=== PATIENT | male | born 1980 ===

== ENCOUNTER 2018-02-22 11:40 | Emergency (ER) | payer OTHER, SELFPAY ==
[2018-02-22 11:54] VITALS: BP 134/100; PULSE 75; RESP 15; TEMP 36.9; O2SAT 97; BMI 21.7
--- NOTE | 2018-02-22 12:02 | DI.RAD.S_ITS ---
PROCEDURE: XR FINGER LT MIN 2V INDICATIONS: left pointer finger lac TECHNIQUE: AP hand, 2 views of the second finger(s) acquired. COMPARISON: None. FINDINGS: Bones: No fractures or dislocations. No suspicious bony lesions. Soft tissues: No suspicious soft tissue calcifications. No opaque foreign body. IMPRESSION: No fracture or dislocation. No opaque foreign body. Dictated by: Francy Wills M.D. on 02/22/2018 at 12:38 Approved by: Francy Wills M.D. on 02/22/2018 at 12:45
--- NOTE | 2018-02-22 12:06 | ED.WOUNDLAC ---
HPI - Wound/Laceration <ALLEY Hamilton - Last Filed: 02/22/18 22:12> General Chief Complaint: Wound/Laceration Stated Complaint: LACERATION TO INDEX FINGER LEFT HAND Time Seen by Provider: 02/22/18 12:06 Source: patient Mode of arrival: ambulatory Limitations: no limitations History of Present Illness HPI narrative: 38-year-old male here for complaint of laceration to his left index finger. 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 This happened just prior to arrival. He denies any other injuries. Bleeding is controlled with pressure. He reports that his last tetanus shot was last year. No other concerns or complaints Related Data Previous Rx's Medication Instructions Recorded hydrocodone-acetaminophen 0 tab PO Q6HP PRN #15 tab 08/18/16 ibuprofen 600 mg PO Q6HP PRN #20 tab 08/18/16 methocarbamol 500 mg PO QIDP PRN #14 tab 08/18/16 Allergies Allergy/AdvReac Type Severity Reaction Status Date / Time No Known Drug Allergies Allergy Verified 02/22/18 11:54 Review of Systems <ALLEY Hamilton - Last Filed: 02/22/18 22:12> Constitutional Denies chills, Denies fever(s), Denies lethargy and Denies weakness Eyes Denies change in vision, Denies eye discharge, Denies irritation and Denies loss of vision ENT Ears, Nose, Mouth, and Throat: Denies change in voice, Denies neck pain and Denies sore throat Cardiovascular Denies chest pain, Denies irregular heart rhythm, Denies lightheadedness, Denies palpitations, Denies dyspnea, Denies dyspnea on exertion and Denies orthopnea Respiratory Denies cough, Denies dyspnea, Denies dyspnea on exertion and Denies wheezing Genitourinary Denies hematuria, Denies flank pain, Denies urinary incontinence and Denies urinary urgency Musculoskeletal Denies neck pain Comments: Laceration left index finger Integumentary/Breasts Denies pruritus, Denies erythema, Denies rash and Denies wounds Neurologic Denies loss of vision and Denies weakness Endocrine Denies palpitations Allergic/Immunologic Denies wheezing Exam <ALLEY Hamilton - Last Filed: 02/22/18 22:12> Initial Vital Signs Initial Vital Signs: Vital Signs Temperature 98.4 F 02/22/18 11:54 Pulse Rate 75 02/22/18 11:54 Respiratory Rate 15 02/22/18 11:54 Blood Pressure 134/100 H 02/22/18 11:54 Pulse Oximetry 97 02/22/18 11:54 Const General: cooperative and well developed Nutritional Appearance: well nourished Orientation: alert, awake, oriented x3 and not confused HENTN Mouth: oral mucosae normal and moist mucous membranes Eyes Conjunctivae: conjunctivae normal Sclera: sclerae normal Pupils: PERRL EOM: EOM intact bilaterally Resp Effort & Inspection: normal respiratory effort, able to speak in complete sentences, no respiratory distress and no use of accessory muscles Auscultation: clear to auscultation bilaterally, no rales, no rhonchi and no wheezes Cardio Rate: regular rate Rhythm: regular rhythm Heart Sounds: no click, no gallops, no murmurs and no rubs Pulses: normal peripheral pulses Neuro General: alert, oriented x3, gait normal and no focal motor deficits Speech: speech normal Extrem Other: To have cm laceration to the distal left index finger radial aspect. Distal sensation is intact. Full range of motion. Distal cap refill less than 2 sec. <Moody Mayen DO - Last Filed: 02/23/18 07:15> Initial Vital Signs Initial Vital Signs: Vital Signs Temperature 98.4 F 02/22/18 11:54 Pulse Rate 75 02/22/18 11:54 Respiratory Rate 15 02/22/18 11:54 Blood Pressure 134/100 H 02/22/18 11:54 Pulse Oximetry 97 02/22/18 11:54 Procedures <ALLEY Hamilton - Last Filed: 02/22/18 22:12> Laceration Repair Laceration 1: Site: other (Left index finger) Side (If applicable): left Size (cm): 2.5 Description: linear Depth: simple, single layer Local Anesthetic: lidocaine 1% Amount of anesthesia used (mL): 2 Pre-repair: wound explored and irrigated extensively Skin layer closed with: nylon Size (cm): 5-0 Number of sutures: 5 Technique: simple, interrupted Course <ALLEY Hamilton - Last Filed: 02/22/18 22:12> Orders Ordered: ED Orders 02/22/18 12:02 XR finger LT min 2V Stat Vital Signs - 8 hr 02/22/18 11:54 Temperature 98.4 F Pulse Rate 75 Respiratory Rate 15 Blood Pressure 134/100 H Pulse Oximetry 97 <Moody Mayen DO - Last Filed: 02/23/18 07:15> Orders Ordered: ED Orders 02/22/18 12:02 XR finger LT min 2V Stat Vital Signs - 8 hr 02/22/18 11:54 Temperature 98.4 F Pulse Rate 75 Respiratory Rate 15 Blood Pressure 134/100 H Pulse Oximetry 97 MDM - Wound/Laceration <ALLEY Hamilton - Last Filed: 02/22/18 22:12> Imaging Data Left index finger: Radiologist's impression: [address] [address] XRay Report Signed Patient: Shiv Grant MR#: [id number] : 1980 Acct:[id number] Age/Sex: 38 / M Date of Service: 02/22/18 Loc: ED Accession Number: [id number] Procedure: XR finger LT min 2V Ordering Provider: Moody Mayen D.O. PROCEDURE: XR FINGER LT MIN 2V INDICATIONS: left pointer finger lac TECHNIQUE: AP hand, 2 views of the second finger(s) acquired. COMPARISON: None. FINDINGS: Bones: No fractures or dislocations. No suspicious bony lesions. Soft tissues: No suspicious soft tissue calcifications. No opaque foreign body. IMPRESSION: No fracture or dislocation. No opaque foreign body. Dictated by: Francy Wills M.D. on 02/22/2018 at 12:38 Approved by: Francy Wills M.D. on 02/22/2018 at 12:[address] [facility] Narrative Medical decision making narrative: X-ray of the left index finger was obtained was negative for any acute fractures or foreign bodies. Laceration left index finger was closed with 5 5-0 nylon simple interrupted sutures with good wound closure. No complications. Wound dressed with bacitracin and tube gauze.. Sutures to be removed in 7-10 days. Keep initial dressing on clean and dry for the next 36 hr. After this timeframe may remove dressing and shower briefly. Dry wound after shower and dressed with bacitracin and a dressing. Dry wound daily with bacitracin dressing until healed. [id number] Tylenol or Motrin as needed for any discomfort. Follow up with primary care provider. Return emergency room for any worsening symptoms. No swimming or bathing until wound heals. Discharge Plan Departure Patient Disposition: Home Clinical Impression: Laceration of left index finger Discharge Date/Time: 02/22/18 13:22 Interventions: ED Discharge Assessment Last Done: 02/22/18 13:21 Instructions: DI for Laceration Repair -- Finger Activity Restrictions/Additional Instructions: X-ray of the left index finger was negative for any fractures or foreign bodies. Laceration left index finger was closed with 5 sutures. Sutures to be removed in 7-10 days. Keep initial dressing on clean and dry for the next 36 hr. After this timeframe may remove dressing and shower briefly. Dry wound after shower and dressed with bacitracin and a dressing. Dry wound daily with bacitracin dressing until healed. [id number] Tylenol or Motrin as needed for any discomfort. Follow up with primary care provider. Return emergency room for any worsening symptoms. No swimming or bathing until wound heals. Prescriptions: No Action methocarbamol 500 MG tablet 500 mg PO QIDP PRNQty: 14 RF: 0 hydrocodone-acetaminophen 5 MG/325 MG tablet PO Q6HP PRNQty: 15 RF: 0 ibuprofen 600 MG tablet 600 mg PO Q6HP PRNQty: 20 RF: 0 Referrals: [facility] [Provider Group] Stand Alone Forms: Work/School Restrictions <Moody Mayen DO - Last Filed: 02/23/18 07:15> Cosign ED Attending Jaja Attestation: I was available for consultation during this patient's emergency department encounter
--- NOTE | 2018-02-22 12:39 | ED_ITS ---
HPI - Wound/Laceration <ALLEY Hamilton - Last Filed: 02/22/18 22:12> General Chief Complaint: Wound/Laceration Stated Complaint: LACERATION TO INDEX FINGER LEFT HAND Time Seen by Provider: 02/22/18 12:06 Source: patient Mode of arrival: ambulatory Limitations: no limitations History of Present Illness HPI narrative: 38-year-old male here for complaint of laceration to his left index finger. 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 This happened just prior to arrival. He denies any other injuries. Bleeding is controlled with pressure. He reports that his last tetanus shot was last year. No other concerns or complaints Related Data Previous Rx's Medication Instructions Recorded hydrocodone-acetaminophen 0 tab PO Q6HP PRN #15 tab 08/18/16 ibuprofen 600 mg PO Q6HP PRN #20 tab 08/18/16 methocarbamol 500 mg PO QIDP PRN #14 tab 08/18/16 Allergies Allergy/AdvReac Type Severity Reaction Status Date / Time No Known Drug Allergies Allergy Verified 02/22/18 11:54 Review of Systems <ALLEY Hamilton - Last Filed: 02/22/18 22:12> Constitutional Denies chills, Denies fever(s), Denies lethargy and Denies weakness Eyes Denies change in vision, Denies eye discharge, Denies irritation and Denies loss of vision ENT Ears, Nose, Mouth, and Throat: Denies change in voice, Denies neck pain and Denies sore throat Cardiovascular Denies chest pain, Denies irregular heart rhythm, Denies lightheadedness, Denies palpitations, Denies dyspnea, Denies dyspnea on exertion and Denies orthopnea Respiratory Denies cough, Denies dyspnea, Denies dyspnea on exertion and Denies wheezing Genitourinary Denies hematuria, Denies flank pain, Denies urinary incontinence and Denies urinary urgency Musculoskeletal Denies neck pain Comments: Laceration left index finger Integumentary/Breasts Denies pruritus, Denies erythema, Denies rash and Denies wounds Neurologic Denies loss of vision and Denies weakness Endocrine Denies palpitations Allergic/Immunologic Denies wheezing Exam <ALLEY Hamilton - Last Filed: 02/22/18 22:12> Initial Vital Signs Initial Vital Signs: Vital Signs Temperature 98.4 F 02/22/18 11:54 Pulse Rate 75 02/22/18 11:54 Respiratory Rate 15 02/22/18 11:54 Blood Pressure 134/100 H 02/22/18 11:54 Pulse Oximetry 97 02/22/18 11:54 Const General: cooperative and well developed Nutritional Appearance: well nourished Orientation: alert, awake, oriented x3 and not confused HENOH Mouth: oral mucosae normal and moist mucous membranes Eyes Conjunctivae: conjunctivae normal Sclera: sclerae normal Pupils: PERRL EOM: EOM intact bilaterally Resp Effort & Inspection: normal respiratory effort, able to speak in complete sentences, no respiratory distress and no use of accessory muscles Auscultation: clear to auscultation bilaterally, no rales, no rhonchi and no wheezes Cardio Rate: regular rate Rhythm: regular rhythm Heart Sounds: no click, no gallops, no murmurs and no rubs Pulses: normal peripheral pulses Neuro General: alert, oriented x3, gait normal and no focal motor deficits Speech: speech normal Extrem Other: To have cm laceration to the distal left index finger radial aspect. Distal sensation is intact. Full range of motion. Distal cap refill less than 2 sec. <Moody Mayen DO - Last Filed: 02/23/18 07:15> Initial Vital Signs Initial Vital Signs: Vital Signs Temperature 98.4 F 02/22/18 11:54 Pulse Rate 75 02/22/18 11:54 Respiratory Rate 15 02/22/18 11:54 Blood Pressure 134/100 H 02/22/18 11:54 Pulse Oximetry 97 02/22/18 11:54 Procedures <ALLEY Hamilton - Last Filed: 02/22/18 22:12> Laceration Repair Laceration 1: Site: other (Left index finger) Side (If applicable): left Size (cm): 2.5 Description: linear Depth: simple, single layer Local Anesthetic: lidocaine 1% Amount of anesthesia used (mL): 2 Pre-repair: wound explored and irrigated extensively Skin layer closed with: nylon Size (cm): 5-0 Number of sutures: 5 Technique: simple, interrupted Course <ALLEY Hamilton - Last Filed: 02/22/18 22:12> Orders Ordered: ED Orders 02/22/18 12:02 XR finger LT min 2V Stat Vital Signs - 8 hr 02/22/18 11:54 Temperature 98.4 F Pulse Rate 75 Respiratory Rate 15 Blood Pressure 134/100 H Pulse Oximetry 97 <Moody Mayen DO - Last Filed: 02/23/18 07:15> Orders Ordered: ED Orders 02/22/18 12:02 XR finger LT min 2V Stat Vital Signs - 8 hr 02/22/18 11:54 Temperature 98.4 F Pulse Rate 75 Respiratory Rate 15 Blood Pressure 134/100 H Pulse Oximetry 97 MDM - Wound/Laceration <ALLEY Hamilton - Last Filed: 02/22/18 22:12> Imaging Data Left index finger: Radiologist's impression: [address] [address] XRay Report Signed Patient: Shiv Grant MR#: [id number] : 1980 Acct:[id number] Age/Sex: 38 / M Date of Service: 02/22/18 Loc: ED Accession Number: [id number] Procedure: XR finger LT min 2V Ordering Provider: Moody Mayen D.O. PROCEDURE: XR FINGER LT MIN 2V INDICATIONS: left pointer finger lac TECHNIQUE: AP hand, 2 views of the second finger(s) acquired. COMPARISON: None. FINDINGS: Bones: No fractures or dislocations. No suspicious bony lesions. Soft tissues: No suspicious soft tissue calcifications. No opaque foreign body. IMPRESSION: No fracture or dislocation. No opaque foreign body. Dictated by: Francy Wills M.D. on 02/22/2018 at 12:38 Approved by: Francy Wills M.D. on 02/22/2018 at 12:45 [facility] Narrative Medical decision making narrative: X-ray of the left index finger was obtained was negative for any acute fractures or foreign bodies. Laceration left index finger was closed with 5 5-0 nylon simple interrupted sutures with good wound closure. No complications. Wound dressed with bacitracin and tube gauze.. Sutures to be removed in 7-10 days. Keep initial dressing on clean and dry for the next 36 hr. After this timeframe may remove dressing and shower briefly. Dry wound after shower and dressed with bacitracin and a dressing. Dry wound daily with bacitracin dressing until healed. [id number] Tylenol or Motrin as needed for any discomfort. Follow up with primary care provider. Return emergency room for any worsening symptoms. No swimming or bathing until wound heals. Discharge Plan Departure Patient Disposition: Home Clinical Impression: Laceration of left index finger Discharge Date/Time: 02/22/18 13:22 Interventions: ED Discharge Assessment Last Done: 02/22/18 13:21 Instructions: DI for Laceration Repair -- Finger Activity Restrictions/Additional Instructions: X-ray of the left index finger was negative for any fractures or foreign bodies. Laceration left index finger was closed with 5 sutures. Sutures to be removed in 7-10 days. Keep initial dressing on clean and dry for the next 36 hr. After this timeframe may remove dressing and shower briefly. Dry wound after shower and dressed with bacitracin and a dressing. Dry wound daily with bacitracin dressing until healed. [id number] Tylenol or Motrin as needed for any discomfort. Follow up with primary care provider. Return emergency room for any worsening symptoms. No swimming or bathing until wound heals. Prescriptions: No Action methocarbamol 500 MG tablet 500 mg PO QIDP PRNQty: 14 RF: 0 hydrocodone-acetaminophen 5 MG/325 MG tablet PO Q6HP PRNQty: 15 RF: 0 ibuprofen 600 MG tablet 600 mg PO Q6HP PRNQty: 20 RF: 0 Referrals: [facility] [Provider Group] Stand Alone Forms: Work/School Restrictions <Moody Mayen DO - Last Filed: 02/23/18 07:15> Cosign ED Attending Jaja Attestation: I was available for consultation during this patient's emergency department encounter
--- NOTE | 2018-02-22 13:20 | PC.NURSE ---
telfa dressing tube gauze applied to left pointer finger.
== END 2018-02-22 13:22 | disposition home or self-care (01) ==
PROVIDERS: Emergency Provider Nurse Practitioner Family
DX: S61.211A Laceration without foreign body of left index finger without damage to nail, initial encounter (principal); W26.0XXA Contact with knife, initial encounter; Y99.0 Civilian activity done for income or pay
CPT/HCPCS: 12001; 12002; 73140; 99283

== ENCOUNTER 2020-06-29 09:32 | Emergency (ER) | payer SELFPAY ==
[2020-06-29 09:35] VITALS: BP 149/103; PULSE 140; RESP 20; TEMP 36.3; O2SAT 98; BMI 28.3
--- NOTE | 2020-06-29 09:41 | DI.RAD.S_ITS ---
PROCEDURE: XR CHEST 1V INDICATIONS: fever, chills TECHNIQUE: One view of the chest was acquired. COMPARISON: None. FINDINGS: Surgical changes and devices: None. Lungs and pleura: Subtle left basilar infiltrates. No pleural effusions or pneumothorax. Mediastinum: Mediastinal contours appear normal. Heart size is normal. Bones and chest wall: No suspicious bony lesions. Overlying soft tissues appear unremarkable. IMPRESSION: Subtle left basilar infiltrates concerning for developing pneumonia. Dictated by: Francy Wills M.D. on 06/29/2020 at 10:10 Approved by: Francy Wills M.D. on 06/29/2020 at 10:13
[2020-06-29 09:55] LABS: Add Manual Diff / Slide Review NO; Basophils Absolute Auto 100 /uL (0-100); Basophils Percent Auto 0.7 % (0-2); Eosinophils Absolute Auto 0 /uL (0-450); Eosinophils Percent Auto 0.4 % (2-4); Hematocrit 47.9 % (41-53); Hemoglobin 16.7 g/dL (13.5-17.5); Lymphocytes Absolute Auto 1600 /uL (1100-4500); Lymphocytes Percent Auto 19.1 % (25-40); Mean Corpuscular HGB Conc 34.9 % (30-36); Mean Corpuscular Hemoglobin 32.7 PG (26-34); Mean Corpuscular Volume 93.6 fL (80-100); Monocytes Absolute Auto 1000 /uL (0-900); Monocytes Percent Auto 12.3 % (3-14); Neutrophils Absolute Auto 5800 /uL (1500-7000); Neutrophils Percent Auto 67.5 % (50-75); Platelet Count 207 X10^3/uL (150-400); Red Blood Cell Count 5.12 X10^6/uL (4.5-5.9); Red Cell Distribution Width 12.6 % (11.6-14.8); White Blood Cell Count 8.5 X10^3/uL (4.5-11.0)
--- NOTE | 2020-06-29 09:55 | ED_ITS ---
HPI - Fever General Chief Complaint: Fever Stated Complaint: fever, wants covid test Time Seen by Provider: 06/29/20 09:33 Source: patient Mode of arrival: Ambulatory Limitations: no limitations History of Present Illness HPI Narrative: 40-year-old male smoker with ongoing dental pain presents with a chief complaint of a headache fever chills and some nausea that is been present for the past few days. He denies any chest pain, shortness of breath or cough. He denies any sore throat. He has had no vomiting or diarrhea. He denies any abdominal pain, dysuria, frequency or urgency. He denies any exposure to p ersons with known or suspected COVID MD complaint: fever Onset (ago): day(s) Temperature Source: subjective Associated symptoms: chills Relieving factors: nothing Exacerbating factors: nothing Treatments prior to arrival fever: none Related Data Home Medications Medication Instructions Recorded Confirmed acetaminophen [Tylenol Extra 1,000 mg PO Q6HR PRN 06/29/20 06/29/20 Strength] amoxicillin mg PO TID 06/29/20 Previous Rx's Medication Instructions Recorded ibuprofen 600 mg PO Q6HP PRN #20 tab 08/18/16 amoxicillin-pot clavulanate 1 tab PO BID #20 tab 06/29/20 [Augmentin] Allergies Allergy/AdvReac Type Severity Reaction Status Date / Time No Known Drug Allergies Allergy Verified 06/29/20 09:55 Review of Systems Constitutional Constitutional: Reports chills, Denies fatigue, Reports fever(s), Denies frequent falls, Denies lethargy and Denies weakness Eyes Eyes: Denies change in vision, Denies eye discharge, Denies irritation and Denies loss of vision ENT Ears, Nose, Mouth, and Throat: Denies change in voice, Reports dental pain, Denies dizziness, Denies neck pain, Denies sore throat and Denies throat s welling Cardiovascular Cardiovascular: Denies chest pain, Denies irregular heart rhythm, Denies lightheadedness, Denies palpitations, Denies dyspnea, Denies dyspnea on exertion and Denies orthopnea Respiratory Respiratory: Denies cough, Denies dyspnea, Denies dyspnea on exertion and Denies wheezing Gastrointestinal Gastrointestinal: Denies abdominal pain, Denies change in bowel habits, Denies diarrhea, Reports nausea and Denies vomiting Musculoskeletal Musculoskeletal: Denies neck pain and Denies numbness Integumentary/Breasts Skin/Breast: Denies pruritus, Denies erythema, Denies rash and Denies wounds Neurologic Neurologic: Denies behavioral changes, Denies confusion, Denies dizziness, Denies frequent falls, Denies loss of vision, Denies numbness and Denies weakness Psychiatric Psychiatric: Denies anxiety, Denies behavioral changes, Denies confusion, Denies depression, Denies homicidal ideation and Denies suicidal ideation Endocrine Endocrine: Denies fatigue, Denies flushing and Denies palpitations Hematologic/Lymphatic Hematologic/Lymphatic: Denies easy bruising Allergic/Immunologic Allergic/Immunologic: Denies urticaria, Denies throat swelling and Denies wheezing Patient History Medical History No significant past medical history Social History Smoking Status: Current every day smoker Smoking Status: Current every day smoker tobacco type: cigarettes alcohol intake frequency: 3 or more drinks per day Substance Use Type: does not use Exam Narrative Exam Narrative: GENERAL: [40] year old patient appears stated age. Well- nourished, well-developed patient, in mild distress. HEAD: Atraumatic. Normocephalic. EYES: Pupils equal round and reactive. Extraocular motions intact. No scleral icterus. No injection or drainage. ENT: Poor dentition throughout, no obvious intraoral swelling or abscess Nose without bleeding, purulent drainage. Throat without erythema, tonsillar hypertrophy or exudate. Airway patent. NECK: Trachea midline. Non tender CARDIOVASCULAR: Tachycardic but regular rhythm without murmurs, gallops, or rubs. RESPIRATORY: Clear to auscultation. Breath sounds equal bilaterally. No wheezes, rales, or rhonchi. GASTROINTESTINAL: Abdomen soft, non-tender, nondistended. EXTREMITIES: No edema or joint tenderness. BACK: Nontender without deformity or crepitance. No flank tenderness. NEURO: AOx3. SKIN: No rash or erythema of visible areas Initial Vital Signs Initial Vital Signs: Vital Signs Temperature 97.3 F L 06/29/20 09:35 Pulse Rate 140 H 06/29/20 09:35 Respiratory Rate 20 06/29/20 09:35 Blood Pressure 149/103 H 06/29/20 09:35 Pulse Oximetry 98 06/29/20 09:35 Course Orders Ordered: ED Orders 06/29/20 09:41 XR chest 1V Stat 06/29/20 09:50 COVID19 Stat Complete Blood Count AUTO DIFF Stat Comprehensive Metabolic Panel Stat Lactate (Lactic Acid) Stat Procalcitonin Stat 06/29/20 10:10 Blood Culture Stat Influenza A & B (PCR) Stat Sodium Chloride (Normal Saline 0.9%) 2,916 mls @ 972 mls/hr 30 ml/kg infuse over 3 hr (2916 ml) IV NOW ONE Stop: 06/29/20 12:41 Last Admin: 06/29/20 10:03 Dose: 972 mls/hr Documented by: Vital Signs Vital signs: Vital Signs - 8 hr 06/29/20 09:35 06/29/20 09:58 06/29/20 10:00 Temperature 97.3 F L Pulse Rate 140 H 104 H 105 H Respiratory Rate 20 16 24 Blood Pressure 149/103 H 149/84 H Pulse Oximetry 98 96 95 MDM - Fever Lab Data Result diagrams: 06/29/20 09:50 06/29/20 09:50 Labs: Lab Results 06/29/20 06/29/20 06/29/20 Range/Units 09:50 09:50 09:50 WBC 8.5 (4.5-11.0) X10^3/uL RBC 5.12 (4.5-5.9) X10^6/uL Hgb 16.7 (13.5-17.5) g/dL Hct 47.9 (41-53) % MCV 93.6 (80-100) fL MCH 32.7 (26-34) PG MCHC 34.9 (30-36) % RDW 12.6 (11.6-14.8) % Plt Count 207 (150-400) X10^3/uL Neut % (Auto) 67.5 (50-75) % Lymph % (Auto) 19.1 L (25-40) % [place] % (Auto) 12.3 (3-14) % Eos % (Auto) 0.4 L (2-4) % Baso % (Auto) 0.7 (0-2) % Neut # (Auto) 5800 (8155-1969) /uL Lymph # (Auto) 1600 (0920-6478) /uL [place] # (Auto) 1000 H (0-900) /uL Eos # (Auto) 0 (0-450) /uL Baso # (Auto) 100 (0-100) /uL Sodium 134 L (137-145) mmol/L Potassium 3.4 (3.4-5.1) mmol/L Chloride 103 (98-107) mmol/L Carbon Dioxide 27 (22-32) mmol/L BUN 9 (9-20) mg/dL Creatinine 1.08 (0.66-1.25) mg/dL Estimated GFR > 60.0 (>60) mL/min BUN/Creatinine Ratio 8.3 (6-22) Glucose 138 H (70-100) mg/dL Lactate (0.7-2.1) mmol/L Calcium 9.1 (8.4-10.2) mg/dL Total Bilirubin 0.5 (0.2-1.3) mg/dL AST 49 (17-59) IU/L ALT 38 (<50) IU/L Alkaline Phosphatase 80 (38-126) U/L Total Protein 8.0 (6.3-8.2) g/dL Albumin 4.1 (3.5-5.0) g/dL Globulin 3.9 (1.7-4.1) g/dL Albumin/Globulin Ratio 1.1 (1.0-2.8) Procalcitonin 0.09 (<0.5) ng/mL COVID-19 PCR (Negative) 06/29/20 06/29/20 Range/Units 09:50 09:50 WBC (4.5-11.0) X10^3/uL RBC (4.5-5.9) X10^6/uL Hgb (13.5-17.5) g/dL Hct (41-53) % MCV (80-100) fL MCH (26-34) PG MCHC (30-36) % RDW (11.6-14.8) % Plt Count (150-400) X10^3/uL Neut % (Auto) (50-75) % Lymph % (Auto) (25-40) % [place] % (Auto) (3-14) % Eos % (Auto) (2-4) % Baso % (Auto) (0-2) % Neut # (Auto) (2680-3425) /uL Lymph # (Auto) (1779-1863) /uL [place] # (Auto) (0-900) /uL Eos # (Auto) (0-450) /uL Baso # (Auto) (0-100) /uL Sodium (137-145) mmol/L Potassium (3.4-5.1) mmol/L Chloride (98-107) mmol/L Carbon Dioxide (22-32) mmol/L BUN (9-20) mg/dL Creatinine (0.66-1.25) mg/dL Estimated GFR (>60) mL/min BUN/Creatinine Ratio (6-22) Glucose (70-100) mg/dL Lactate 1.2 (0.7-2.1) mmol/L Calcium (8.4-10.2) mg/dL Total Bilirubin (0.2-1.3) mg/dL AST (17-59) IU/L ALT (<50) IU/L Alkaline Phosphatase (38-126) U/L Total Protein (6.3-8.2) g/dL Albumin (3.5-5.0) g/dL Globulin (1.7-4.1) g/dL Albumin/Globulin Ratio (1.0-2.8) Procalcitonin (<0.5) ng/mL COVID-19 PCR Negative (Negative) Imaging Data Chest x-ray: Radiologist's Impression: [address] [id number] ReportSigned Patient: Shiv Grant R#: [id number]: 1980Acct:[id number]/Sex: 40 / MDate of Service: 06/29/20Loc: EDAccession Number: [id number] Procedure: XR chest 1V Ordering Provider: Javon Oropeza D.O. PROCEDURE: XR CHEST 1V INDICATIONS: fever, chills TECHNIQUE: One view of the chest was acquired. COMPARISON: None. FINDINGS: Surgical changes and devices: None. Lungs and pleura: Subtle left basilar infiltrates. No pleural effusions or pneumothorax. Mediastinum: Mediastinal contours appear normal. Heart size is normal. Bones and chest wall: No suspicious bony lesions. Overlying soft tissues appear unremarkable. IMPRESSION: Subtle left basilar infiltrates concerning for developing pneumonia. Dictated by: Francy Wills M.D. on 06/29/2020 at 10:10 Approved by: Francy Wills M.D. on 06/29/2020 at 10:13 MDM Narrative Medical decision making narrative: Patient showing tremendous improvement after above-stated therapies. Vital signs have stabilized. Return precautions given, questions answered to his apparent satisfaction Discharge Plan Departure Patient Disposition: Home Clinical Impression: Fever Qualifiers: Fever type: unspecified Qualified Code(s): R50.9 - Fever, unspecified Pneumonia Qualifiers: Pneumonia type: due to unspecified organism Laterality: left Lung location: lower lobe of lung Qualified Code(s): J18.9 - Pneumonia, unspecified organism Instructions: DI for Pneumonia -- Adult Activity Restrictions/Additional Instructions: *You have been diagnosed with [left lower lobe pneumonia] *What to do: *Take medications as directed. STOP the existing Amoxicillin Rx and start the new Augmentin which has been sent to [facility] at your request *Follow up with your primary care provider in 2-3 days, call for an appointment. Let them know you were seen in the Emergency Department and that we ask that you be seen in follow up *Return to ER if you should have any new, worsening or concerning symptoms Prescriptions: New amoxicillin-pot clavulanate [Augmentin] 875-125 mg tablet 1 tab PO BID Qty: 20 RF: 0 No Action ibuprofen 600 MG tablet 600 mg PO Q6HP PRNQty: 20 RF: 0 amoxicillin 500 mg capsule PO TID RF: 0 acetaminophen [Tylenol Extra Strength] 500 mg Capsule 1,000 mg PO Q6HR PRN (Reason: fever, pain) RF: 0
[2020-06-29 09:58] VITALS: PULSE 104; RESP 16; O2SAT 96
[2020-06-29 10:00] VITALS: BP 149/84; PULSE 105; RESP 24; O2SAT 95
[2020-06-29] MEDS: SODIUM CHLORIDE 0.9% 972 ML IV (10:03)
[2020-06-29 10:07] LABS: Lactate (Lactic Acid) 1.2 mmol/L (0.7-2.1)
[2020-06-29 10:09] LABS: Alanine Aminotransferase 38 IU/L (<50); Albumin 4.1 g/dL (3.5-5.0); Albumin Globulin Ratio 1.1 (1.0-2.8); Alkaline Phosphatase 80 U/L (38-126); Aspartate Aminotransferase 49 IU/L (17-59); BUN Creatinine Ratio 8.3 (6-22); Bilirubin Total 0.5 mg/dL (0.2-1.3); Blood Urea Nitrogen 9 mg/dL (9-20); Calcium 9.1 mg/dL (8.4-10.2); Carbon Dioxide 27 mmol/L (22-32); Chloride 103 mmol/L (98-107); Estimated Glomerular Filt Rate > 60.0 mL/min (>60); Globulin 3.9 g/dL (1.7-4.1); Glucose 138 mg/dL (70-100); HEMOLYSIS < 15 (0-50); Potassium 3.4 mmol/L (3.4-5.1); Sodium 134 mmol/L (137-145)
[2020-06-29 10:14] LABS: COVID19 -Nasal RAPID Negative (Negative)
[2020-06-29 10:15] VITALS: BP 140/91; PULSE 96; RESP 11; O2SAT 94
--- NOTE | 2020-06-29 10:15 | PC.NURSE ---
right lower jaw pain, upon exam black right lower molar noted. Provider aware. Pt started on amoxicillin 06/27.
[2020-06-29 10:21] LABS: Procalcitonin 0.09 ng/mL (<0.5)
[2020-06-29 10:30] VITALS: BP 135/92; PULSE 86; RESP 15; O2SAT 94
[2020-06-29 10:50] LABS: Influenza A - CEPHEID Flu A NEGATIVE (NEGATIVE); Influenza B - CEPHEID Flu B NEGATIVE (NEGATIVE)
== END 2020-06-29 11:10 | disposition home or self-care (01) ==
PROVIDERS: Emergency Provider Emergency Medicine
DX: J18.9 Pneumonia, unspecified organism (principal); R50.9 Fever, unspecified; R51.9 Headache, unspecified; R11.0 Nausea; Z20.828 Contact with and (suspected) exposure to other viral communicable diseases
CPT/HCPCS: 36415; 71045; 80053; 83605; 84145; 85025; 87040; 87502; 87635; 96360; 99283; 99284